=== PATIENT | male | born 1970 | race Caucasian/White ===

== ENCOUNTER → 2018-07-12 16:44 | Outpatient (CLI) | payer BC ==
[~2018-07-12 16:44] MED LIST: KEFLEX500 MG PO; MULTI-DAY VITAM1 TAB PO; PREDNISONE10 MG PO
[2018-07-13 11:04] VITALS: BMI 33.0
== END | disposition home or self-care (01) ==
LOC: D.CT 16:30
DX: R13.12 Dysphagia, oropharyngeal phase (principal)

== ENCOUNTER 2018-07-12 18:42 | Observation (INO) | payer BC ==
[~2018-07-12] VITALS: Ht 177.8 cm; Wt 104.5 kg
--- NOTE | ~2018-07-12 | CN ---
PATIENT NAME:QUINTON LEES MEDICAL RECORD: [id number] : 74 LOCATION:. D.2129 ADMIT DATE: 07/12/18 ACCOUNT: [id number] CONSULTING PHYSICIAN: NANETTE ZHANG MD REFERRING PHYSICIAN: ANDRAE JUAN MD DATE OF CONSULTATION: 07/13/2018 HISTORY OF PRESENT ILLNESS: Mr. Lees is a 47-year-old male, who has had some sore throat symptoms for about 5 days. He had a CT scan of the neck, not sure of the reasons for that, but he had a CT of the neck and the CT report was concerning for some airway compromise. The patient says it hurts a little bit to swallow and has had a sore throat, below in his throat for about 4 or 5 days. No fever, chills, weight loss, or systemic symptoms, not having any breathing difficulty. No problems with his voice. He does have a history of a tonsillectomy as a child. ALLERGIES: He reports no known drug allergies. PHYSICAL EXAMINATION: GENERAL: He is healthy appearing. He is fully dressed, alert, walking around perfectly, normal voice, no distress. No obvious abnormality. FACE: Normal, symmetric, no lesions. EYES: Sclerae and conjunctivae are normal. NOSE: No masses, polyps, or drainage, no congestion. Nose really looks normal. ORAL CAVITY AND OROPHARYNX: He is status post tonsillectomy. The pharynx looks completely normal. Palate and uvula, no edema, erythema or inflammation. Tongue protrudes midline. NECK: No masses, no adenopathy, no tenderness. Full range of motion. Flexible laryngoscopy through the right side of the nose after decongestion with Afrin. The nasal cavity is normal. Inferior turbinate, floor of the nose, septum all normal relatively straight. Nasopharynx is normal. No swelling, inflammation or drainage or sign of infection. The hypopharynx, the vallecula, and base of tongue are normal. Supraglottic larynx may be some mild erythema, not much, no significant edema at all. The piriforms and postcricoid area are normal. The cords have normal mobility, maybe a little hyperemia, but that is all, subglottis and upper trachea are normal, really no edema, just some mild diffuse erythema in the supraglottic larynx. CT SCAN: CT of the neck really looks relatively normal. His cords are closed consistent with Valsalva during holding his breath for exam, really no masses or lesions could be seen. He does have some heterogeneous appearance to the thyroid, but not particularly enlarged. I do not see any sign of a dominant nodule or anything like that. IMPRESSION: Upper respiratory infection, maybe mild supraglottic laryngitis. I am going to put him on some steroids and some Keflex 500 mg 4 times a day for 5 days. If his symptoms progress, he can come back, but I expect some slow resolution to his symptoms. I can see him back in the office in 2-3 weeks. I want to recheck his larynx to get a better exam in the office and make sure I do not see any laryngeal lesions. For his thyroid, he does not really give a family history of any thyroid cancer or anything like that, but an ultrasound and some TFTs could be done to check on that as an outpatient as well. Have him start some omeprazole and Zantac for reflux even though he has no overt symptoms just to help with any laryngitis and will see him back in the office. CONSULT REPORT [id number] QUINTON LEES TRANSINT:[id number] Voice Confirmation ID: [id number] DOCUMENT ID: [id number] NANETTE ZHANG MD at 0812 CC: [id number] DICTATION DATE: 07/13/18 153 [employer] MA[employer]GER: 07/13/18 1624 DIS IN 07/13/18 [facility] [address] [place] [address]
[2018-07-12] MEDS ORDERED: MULTI-DAY VITAM1 TAB PO (18:55)
[2018-07-12 19:59] LABS: BASOPHILS 0.6 % (0-2); EOSINOPHILS 0.1 % (0-7); HEMATOCRIT 46.2 % (42.0-54.0); HEMOGLOBIN 16.9 g/dL (13.5-17.5); IMMATURE GRANULOCYTES 2.1 % (0-5); LYMPHOCYTES 9.4 % (15-50); MCHC 36.6 g/dL (31.0-37.0); MCV 84.8 fL (80.0-100.0); MEAN PLATELET VOLUME 9.7 fL (7.4-10.4); MONOCYTES 0.8 % (2-11); PLATELET COUNT 214 10x3/uL (130-400); RBC 5.45 10x6/uL (4.20-6.10); RDW 12.4 % (11.5-14.5); WBC 7.8 10x3/uL (4.8-10.8)
[2018-07-12 19:59] LABS: APPEARANCE CLEAR (CLEAR); BILIRUBIN NEGATIVE (NEGATIVE); COLOR YELLOW (YELLOW); GLUCOSE NEGATIVE (NEGATIVE); KETONE NEGATIVE (NEGATIVE); NITRITE NEGATIVE (NEGATIVE); PROTEIN TRACE mg/dL (NEGATIVE); UROBILINOGEN NORMAL (NORMAL)
[2018-07-12 20:02] LABS: INR 0.96 (0.85-1.17); PROTIME 12.4 SECONDS (11.6-15.0)
[2018-07-12 20:14] LABS: ALBUMIN 4.6 g/dL (3.4-5.0); ANION GAP 16.1 mmol/L (8-16); BILIRUBIN - TOTAL 0.5 mg/dL (0.2-1.3); CALCIUM 9.9 mg/dL (8.5-10.1); CARBON DIOXIDE 22.3 mmol/L (21.0-32.0); CREATININE - SERUM 1.3 mg/dL (0.6-1.3); MAGNESIUM - SERUM 1.9 mg/dL (1.8-2.4); POTASSIUM - SERUM 4.4 mmol/L (3.5-5.1); PROTEIN - SERUM 8.3 g/dL (6.4-8.2)
[2018-07-12 22:09] VITALS: BP 160/102; BMI 33.0
[2018-07-13] VITALS: BP 120/85
[2018-07-13 05:22] VITALS: BP 139/81
[2018-07-13 08:30] VITALS: BP 137/87
[2018-07-13 11:04] VITALS: Ht 177.8 cm; Wt 104.5 kg
[2018-07-13] MEDS ORDERED: PREDNISONE10 MG PO (13:50)
[2018-07-13] MEDS ORDERED: KEFLEX500 MG PO (13:50)
== END 2018-07-13 14:48 | disposition home or self-care (01) ==
LOC: D.ER 18:42 → D.M2 19:56 → OBSVTIME 07-13 14:46 → D.M2 07-13 14:48
PROVIDERS: Emergency Medicine
DX: J06.9 Acute upper respiratory infection, unspecified (principal); R13.10 Dysphagia, unspecified; N17.9 Acute kidney failure, unspecified